=== PATIENT | female | born 1995 | race Caucasian/White ===

== ENCOUNTER 2016-06-04 19:46 | Emergency (ER) | payer SELFPAY ==
[2016-06-04 20:50] VITALS: BP 125/87
--- NOTE | 2016-06-04 21:13 | UC ---
Complaint Female HPI - HPI Summary HPI Summary: pain and burning with urination gets frequent utis has only 1 kidney, pcp gives her cipro to take after sex to prevent UTI---took one on yesterday - History Of Current Complaint Chief Complaint: UCGU Stated Complaint: URINARY Time Seen by Provider: 06/04/16 21:08 Hx Obtained From: Patient Hx Last Menstrual Period: 05/28/16 ?: No Onset/Duration: Sudden Onset, Lasting Days - 1, Still Present Timing: Constant Severity Initially: Moderate Severity Currently: Moderate Pain Intensity: 5 Pain Scale Used: 0-10 Numeric Character: Burning Aggravating Factor(s): Urination Alleviating Factor(s): Nothing Associated Signs And Symptoms: Positive: Negative - Allergies/Home Medications Allergies/Adverse Reactions: Allergies Allergy/AdvReac Type Severity Reaction Status Date / Time No Known Allergies Allergy Verified 06/04/16 20:44 Home Medications: Home Medications Ciprofloxacin TAB* [Cipro 250 MG Tab*] 250 mg PO ONCE 06/04/16 [History Confirmed 06/04/16] Fexofenadine (NF) [Maggy (NF)] 60 mg PO DAILY 06/04/16 [History Confirmed 02/08] Norgestimate-Ethinyl Estradiol [Trinessa Lo 0.18/0.215/0.25 mg-25 Mcg] 1 tab PO DAILY 06/04/16 [History Confirmed 06/04/16] PMH/Surg Hx/FS Hx/Imm Hx Previously Healthy: No - frequent uti GI/ History Of: Reports: Renal Disease - Surgical History Surgical History: Yes Surgery Procedure, Year, and Place: left nephrectomy, cholecystectomy - Family History Known Family History: Positive: None Family History: no cardiovascular issues reported in family lineage - Social History Occupation: Student Lives: With Family Alcohol Use: Occasionally Alcohol Amount: 2 times a week Substance Use Type: None Substance Use Comment - Amount & Last Used: occasional Smoking Status (MU): Never Smoked Tobacco Review of Systems Constitutional: Negative Skin: Negative Eyes: Negative ENT: Negative Respiratory: Negative Cardiovascular: Negative Gastrointestinal: Negative Genitourinary: Dysuria, Frequency, Urgency Motor: Negative Neurovascular: Negative Musculoskeletal: Negative Neurological: Negative Psychological: Negative All Other Systems Reviewed And Are Negative: Yes Physical Exam Triage Information Reviewed: Yes Appearance: Well-Appearing, No Pain Distress, Well-Nourished Vital Signs: Initial Vital Signs Temp 99.6 F 06/04/16 20:45 Pulse 78 06/04/16 20:45 Resp 16 06/04/16 20:45 BP 125/87 06/04/16 20:45 Pulse Ox 100 06/04/16 20:45 Vital Signs Reviewed: Yes Eye Exam: Normal Eyes: Positive: Conjunctiva Clear ENT Exam: Normal ENT: Positive: Normal ENT inspection, Hearing grossly normal. Negative: Nasal congestion, Nasal drainage, Trismus, Muffled/hoarse voice Dental Exam: Normal Neck exam: Normal Neck: Positive: Supple, Nontender Respiratory Exam: Normal Respiratory: Positive: Chest non-tender, No respiratory distress, No accessory muscle use Cardiovascular Exam: Normal Cardiovascular: Positive: RRR, Pulses Normal, Brisk Capillary Refill Abdominal Exam: Normal Abdomen Description: Positive: Nontender, No Organomegaly, Soft Bowel Sounds: Positive: Present Musculoskeletal Exam: Normal Musculoskeletal: Positive: Strength Intact, ROM Intact, No Edema Neurological Exam: Normal Neurological: Positive: Alert, Muscle Tone Normal Psychological Exam: Normal Skin Exam: Normal Diagnostics - Laboratory Diagnostic Studies Completed/Ordered: ua-- (+)1 leukoesterase Complaint Female Dx - Course Course Of Treatment: culture urine, keflex, pyridium, increase fluids, to ed for worsening or unresolving sx - Differential Dx/Diagnosis Differential Diagnosis/HQI/PQRI: Renal Colic, Ureteral Stone, Urinary Tract Infection Provider Diagnoses: UTI Discharge - Discharge Plan Condition: Stable Disposition: HOME Prescriptions: Cephalexin CAP* [Keflex CAP*] 500 mg PO BID #12 cap Phenazopyridine TAB* [Pyridium 100 mg TAB*] 100 mg PO TID PRN #6 tab PRN Reason: urinary burning Patient Education Materials: Urinary Tract Infection in Women (ED) Referrals: Non Staff,Doctor [Primary Care Provider] - Additional Instructions: Follow at [facility] office in 7 days. To emergency Department for back pain , fevers, chills, nausea, vomiting, unresolving or worsening symptoms
[2016-06-04] MEDS ORDERED: Cephalexin CAP* 500 MG PO ONE ×2 (21:22→21:24)
== END 2016-06-04 21:45 | disposition home or self-care (01) ==
LOC: UCCORT 19:46
DX: N39.0 Urinary tract infection, site not specified (principal); Z87.440 Personal history of urinary (tract) infections; Z90.5 Acquired absence of kidney; Z90.49 Acquired absence of other specified parts of digestive tract
CPT/HCPCS: 81003; 87086; 99212; A9270-GY; G0463

== ENCOUNTER 2016-11-22 11:24 | Emergency (ER) | payer OTHER ==
[2016-11-22 12:05] VITALS: BP 123/73
--- NOTE | 2016-11-22 12:15 | UC ---
Complaint Female HPI - HPI Summary HPI Summary: lower pelvic discomfort, pain after urination, some vaginal discharge, no fevers , chills or back pain - History Of Current Complaint Chief Complaint: UCGU Stated Complaint: URINARY COMPLAINT Time Seen by Provider: 11/22/16 12:12 Hx Obtained From: Patient Hx Last Menstrual Period: 11/05/16 ?: No Onset/Duration: Sudden Onset, Lasting Days - 2-3 Timing: Constant Severity Initially: Mild Severity Currently: Mild Aggravating Factor(s): Urination Associated Signs And Symptoms: Positive: Vaginal Discharge - Allergies/Home Medications Allergies/Adverse Reactions: Allergies Allergy/AdvReac Type Severity Reaction Status Date / Time No Known Allergies Allergy Verified 11/22/16 12:00 Home Medications: Home Medications Nitrofurantoin Macrocrystals* [Macrodantin*] 50 mg PO SEE INSTRUCTIONS PRN 11/22 [History Confirmed 11/22/16] PMH/Surg Hx/FS Hx/Imm Hx Previously Healthy: No - Surgical History Surgical History: Yes Surgery Procedure, Year, and Place: left nephrectomy, cholecystectomy - Family History Known Family History: Positive: None Family History: no cardiovascular issues reported in family lineage - Social History Occupation: Student Lives: Dormitory/Roommates Alcohol Use: Weekly Alcohol Amount: 2 times a week Substance Use Type: None Substance Use Comment - Amount & Last Used: occasional Smoking Status (MU): Never Smoked Tobacco - Immunization History Most Recent Influenza Vaccination: Not the Season Review of Systems Constitutional: Negative Skin: Negative Eyes: Negative ENT: Negative Respiratory: Negative Cardiovascular: Negative Gastrointestinal: Negative Genitourinary: Dysuria, Vaginal/Penile Discharge Motor: Negative Neurovascular: Negative Musculoskeletal: Negative Neurological: Negative Psychological: Negative Is Patient Immunocompromised?: No All Other Systems Reviewed And Are Negative: Yes Physical Exam Triage Information Reviewed: Yes Appearance: Well-Appearing, No Pain Distress, Well-Nourished Vital Signs: Initial Vital Signs Temp 98.5 F 11/22/16 11:56 Pulse 70 11/22/16 11:56 Resp 16 11/22/16 11:56 BP 123/73 11/22/16 11:56 Pulse Ox 100 11/22/16 11:56 Vital Signs Reviewed: Yes Eye Exam: Normal Eyes: Positive: Conjunctiva Clear ENT Exam: Normal ENT: Positive: Normal ENT inspection. Negative: Nasal congestion, Nasal drainage, Trismus, Muffled/hoarse voice Dental Exam: Normal Neck exam: Normal Neck: Positive: Supple, Nontender, No Lymphadenopathy Respiratory Exam: Normal Respiratory: Positive: Chest non-tender, No respiratory distress, No accessory muscle use Cardiovascular Exam: Normal Cardiovascular: Positive: RRR, No Murmur, Pulses Normal, Brisk Capillary Refill Abdomen Description: Positive: No Organomegaly, Soft. Negative: CVA Tenderness (R), Distended, Guarding, McBurney's Point Tenderness, Peritoneal Signs, Pulsatile Mass Bowel Sounds: Positive: Present Musculoskeletal Exam: Normal Musculoskeletal: Positive: Strength Intact, ROM Intact Neurological Exam: Normal Neurological: Positive: Alert, Muscle Tone Normal Psychological Exam: Normal Skin Exam: Normal UC Physical Exam Vital Signs On Initial Exam: Initial Vitals Temp Pulse Resp BP Pulse Ox 98.5 F 70 16 123/73 100 11/22/16 11:56 11/22/16 11:56 11/22/16 11:56 11/22/16 11:56 11/22/16 11:56 - Genitalia Exam Female Genitourinary: Normal External Exam, Other - thick white malodorus, no cervical motion tenderness Diagnostics - Laboratory Diagnostic Studies Completed/Ordered: +1 leukoesterace Complaint Female Dx - Course Course Of Treatment: keflex, increase fluids, culture urine, vaginal swabs, follow with [facility] [place] as well as pcp in [place] - Differential Dx/Diagnosis Differential Diagnosis/HQI/PQRI: , Retained Foreign Body, Sexually Transmitted Disease, Ureteral Stone, Urinary Tract Infection Provider Diagnoses: UTI Discharge - Discharge Plan Condition: Stable Disposition: HOME Prescriptions: Cephalexin CAP* [Keflex CAP*] 500 mg PO BID #20 cap Patient Education Materials: Dysuria (ED) Referrals: [facility] [Outside] - 5 Days [facility] [Outside] - 5 Days
--- NOTE | 2016-11-25 07:18 | UC ---
Progress - Progress Note Progress Note: + Myriam will ERx Diflucan 150 mg x 1
== END 2016-11-22 13:01 | disposition home or self-care (01) ==
LOC: UCCORT 11:24
DX: N39.0 Urinary tract infection, site not specified (principal); Z32.02 Encounter for pregnancy test, result negative
CPT/HCPCS: 81003; 84702; 87077; 87086; 87480; 87491; 87510; 87591; 87661; 99212; G0463

== ENCOUNTER 2017-03-15 16:51 | Emergency (ER) | payer OTHER | END 2017-03-15 20:30 | disposition left against medical advice (07) | LOC: UCCORT 16:51 | DX: R39.9 Unspecified symptoms and signs involving the genitourinary system (principal); Z53.21 Procedure and treatment not carried out due to patient leaving prior to being seen by health care provider ==

== ENCOUNTER 2017-03-15 21:20 | Emergency (ER) | payer OTHER ==
[2017-03-15 21:39] VITALS: BP 139/73
[2017-03-15] MEDS ORDERED: Sulfamethox/Trimethoprim DS 800/160* TAB PO ONE ×2 (21:50→21:59)
--- NOTE | 2017-03-15 21:57 | UC ---
Complaint Female HPI - HPI Summary HPI Summary: patient complaining of urinary symtpoms since last night, lower abdominal pain and dysuria - History Of Current Complaint Chief Complaint: UCGU Stated Complaint: URINARY Time Seen by Provider: 03/15/17 21:36 Hx Obtained From: Patient Hx Last Menstrual Period: 02/18/17 ?: No Onset/Duration: Sudden Onset, Lasting Days - 2 Timing: Intermittent Severity Initially: Moderate Severity Currently: Moderate Character: Burning, Cramping Aggravating Factor(s): Urination - Allergies/Home Medications Allergies/Adverse Reactions: Allergies Allergy/AdvReac Type Severity Reaction Status Date / Time No Known Allergies Allergy Verified 11/22/16 12:00 PMH/Surg Hx/FS Hx/Imm Hx Previously Healthy: Yes - Surgical History Surgical History: Yes Surgery Procedure, Year, and Place: left nephrectomy, cholecystectomy - Family History Known Family History: Positive: None Family History: no cardiovascular issues reported in family lineage - Social History Alcohol Use: Weekly Alcohol Amount: 2 times a week Substance Use Type: None Substance Use Comment - Amount & Last Used: occasional Smoking Status (MU): Never Smoked Tobacco - Immunization History Most Recent Influenza Vaccination: Not the Season Review of Systems Constitutional: Negative Skin: Negative Eyes: Negative ENT: Negative Respiratory: Negative Cardiovascular: Negative Gastrointestinal: Negative Genitourinary: Dysuria, Urgency Motor: Negative Neurovascular: Negative Musculoskeletal: Negative Neurological: Negative Psychological: Negative Is Patient Immunocompromised?: No All Other Systems Reviewed And Are Negative: Yes Physical Exam Triage Information Reviewed: Yes Appearance: Well-Appearing, Well-Nourished, Pain Distress Vital Signs: Initial Vital Signs Temp 98.5 F 03/15/17 21:29 Pulse 88 03/15/17 21:29 Resp 18 03/15/17 21:29 BP 139/73 03/15/17 21:29 Pulse Ox 100 03/15/17 21:29 Vital Signs Reviewed: Yes Eye Exam: Normal ENT Exam: Normal Dental Exam: Normal Neck exam: Normal Respiratory Exam: Normal Respiratory: Positive: Chest non-tender, Lungs clear, Normal breath sounds Cardiovascular Exam: Normal Cardiovascular: Positive: RRR, No Murmur, Pulses Normal Abdominal Exam: Normal Abdomen Description: Positive: Nontender, No Organomegaly, Soft, CVA Tenderness (R) - neg, CVA Tenderness (L) - neg, Other: - neg rebound tenderness, no masses Bowel Sounds: Positive: Hyperactive Musculoskeletal Exam: Normal Musculoskeletal: Positive: Strength Intact, ROM Intact, No Edema Neurological Exam: Normal Neurological: Positive: Alert, Muscle Tone Normal Psychological Exam: Normal Skin Exam: Normal Complaint Female Dx - Course Course Of Treatment: hx obtained, exam performed, meds reviewed, UA neg, Urine preg neg, urine sent for culture, treated with bactrim due to her symptoms and high suseptability to UTI, - Differential Dx/Diagnosis Differential Diagnosis/HQI/PQRI: Ureteral Stone, Urinary Tract Infection Provider Diagnoses: dysuria. lower abdominal pain Discharge - Discharge Plan Condition: Stable Disposition: HOME Prescriptions: Sulfamethox/Trimethoprim DS* [Bactrim DS 800/160 TAB*] 1 tab PO BID #5 tab Patient Education Materials: Dysuria (ED) Referrals: No Primary Care Phys,NOPCP [Primary Care Provider] - Additional Instructions: 1. take the medication as prescribed. 2. Increase fluid intake and get plenty of rest. 3. urine culture will be available in 2-3 days, we will albert lif we need to switch your treatment, if you are still symtpomatic, please call with results or follow up.
== END 2017-03-15 22:09 | disposition home or self-care (01) ==
LOC: UCCORT 21:20
DX: R30.0 Dysuria (principal); R10.30 Lower abdominal pain, unspecified; Z32.02 Encounter for pregnancy test, result negative; Z90.5 Acquired absence of kidney; Z72.89 Other problems related to lifestyle
CPT/HCPCS: 81003; 84702; 87086; 99212; A9270-GY; G0463